=== PATIENT | female | born 1975 | race Caucasian/White ===

== ENCOUNTER 2023-05-01 08:56 | Outpatient (CLI) | payer OTHER, SELFPAY ==
--- NOTE | ~2023-05-01 | XR_ITS ---
XR ankle LT min 3V DATE: 05/01/2023 09:17 INDICATION: Fall. Left ankle and foot injury, bruising to fifth metatarsal area TECHNIQUE: 4 views COMPARISON: None FINDINGS: No fracture or dislocation of the ankle or disruption of the ankle mortise. No periosteal r eaction or bone destruction. IMPRESSION: Negative Reviewed, dictated and finalized at location A. GUARD IMPRESSION: Negative
--- NOTE | ~2023-05-01 | XR_ITS ---
XR foot LT min 3V DATE: 05/01/2023 09:17 INDICATION: Fall. Bruising to fifth metatarsal area TECHNIQUE: 4 views COMPARISON: None FINDINGS: There is a minimally comminuted corner fracture at the distal lateral aspect of the calcane us, minimally displaced. No other fracture or dislocation is detected. The fifth metatarsal bone is intact. IMPRESSION: Minimally comminuted corner fracture of the distal lateral aspect of the calcaneus Reviewed, dictated and finalized at location A. DE ATTENDANT IMPRESSION: Minimally comminuted corner fracture of the distal lateral aspect o f the calcaneus
== END 2023-05-01 08:57 | disposition home or self-care (01) ==
PROVIDERS: PCP Pediatrics; Visit Provider Pediatrics
DX: S90.122A Contusion of left lesser toe(s) without damage to nail, initial encounter (principal); X58.XXXA Exposure to other specified factors, initial encounter
CPT/HCPCS: 73610; 73630